=== PATIENT | male | born 1960 | race Caucasian/White ===

== ENCOUNTER 2024-03-05 16:33 | Outpatient (CLI) | payer BC, SELFPAY | END 2024-03-05 16:34 | disposition home or self-care (01) | LOC: SPT 16:33 | PROVIDERS: Family Provider General Practice; PCP Internal Medicine; Visit Provider Physician Assistant | DX: Z46.89 Encounter for fitting and adjustment of other specified devices (principal); M17.12 Unilateral primary osteoarthritis, left knee | CPT/HCPCS: 97760; L1851 ==

== ENCOUNTER → 2024-04-09 07:40 | Outpatient (BNVA) | payer BC, SELFPAY | PROVIDERS: Family Provider General Practice; PCP Internal Medicine; Visit Provider Physician Assistant | DX: M17.12 Unilateral primary osteoarthritis, left knee (principal) | CPT/HCPCS: 73560; 73565 ==